=== PATIENT | male | born 1970 | race Caucasian/White ===

== ENCOUNTER 2017-03-17 09:54 | Day surgery (SDC) | payer OTHER ==
[2017-03-13 11:12] VITALS: BMI 33.5
[~2017-03-17 09:54] MED LIST: LACTATED RINGERS 1,000 ML IV SCH; SODIUM CHLORIDE 0.9% 1,000 ML IV SCH
[2017-03-17] MEDS ORDERED: SODIUM CHLORIDE 0.9% 500 ML IV ONE ×2 (10:51)
[2017-03-17 10:59] LABS: Anion Gap 12 mmol/L; Blood Urea Nitrogen 14 mg/dL (9-20); Calcium 9.8 mg/dL (8.4-10.2); Carbon Dioxide 30 mmol/L (22-30); Chloride 102 mmol/L (98-107); Glucose 117 mg/dL (74-99); Non-African American GFR(MDRD) >60 (>60 ml/min/1.73 sqM); Potassium 4.8 mmol/L (3.5-5.1); Sodium 144 mmol/L (137-145)
[2017-03-17 11:01] VITALS: RESP 18
[2017-03-17] MEDS ORDERED: fentaNYL (PF) 50 MCG/ML 2 ML AMP ONE (11:05)
[2017-03-17] MEDS ORDERED: PROPOFOL 10 MG/ML 20 ML VIAL IV ONE (11:05)
[2017-03-17] MEDS ORDERED: LIDOCAINE 1% INJ 10MG/ML (20 ML MDV) ONE (11:05)
[2017-03-17] MEDS ORDERED: SODIUM CHLORIDE 0.9% 1,000 ML IV SCH (11:15)
[2017-03-17 11:30] VITALS: TEMP 98.5
[2017-03-17 14:13] VITALS: PULSE 70
[2017-03-17 16:04] VITALS: BP 132/70
--- NOTE | 2017-03-17 22:40 | PCN ---
DATE OF PROCEDURE: 03/17/2017 PROCEDURE: Electrical cardioversion. INDICATION: Persistent atrial fibrillation. PERFORMED BY: Dr. Bean Zepead. CLINICAL INFORMATION: Mr. Brad Onofre is a 46-year-old gentleman with a history of smoking and alcoholism who developed atrial fibrillation about a year ago, underwent cardioversion, and was remaining in sinus rhythm, but atrial fibrillation has recurred. With this he developed some shortness of breath; usually has had LV dysfunction when he goes into atrial fibrillation, but this time he seemed to be tolerating it better, but over the last few weeks he became more short of breath and he remained in atrial fibrillation in spite of amiodarone. He was brought in for electrical cardioversion after adequate anticoagulation with Savaysa 60 mg daily and rate control with beta merced. PROCEDURE: Under the influence of an ultra short-acting intravenous anesthetic agent with the attendance of the anesthesiologist, a single synchronized 200-joule shock was delivered with anterior and posterior patches. Patient converted to sinus rhythm and remained hemodynamically stable and neurologically intact. The results were discussed with the patient and his friend Elvis who brought the patient in. Patient remains hemodynamically stable. He will be discharged on the same medications in the next 3 to 4 hours after he is fully awake, has had a meal and ambulated. I will see him in the office on Thursday, March 23, at 8 a.m.
--- NOTE | 2017-03-17 22:42 | LTR ---
March 17, 2017 RE: Jemima Brad Patrice Dear Dr. Anguiano, Thank you for the opportunity to participate in the care of Mr. Onofre. I performed a cardioversion on this gentleman for persistent atrial fibrillation. He converted to sinus rhythm, remains in sinus rhythm, hemodynamically stable and neurologically intact. He will be discharged later on today, and I will see him in the office in 5 to 6 days. Thank you for your referral. Please call with questions. Sincerely, MIRACLE HAGER MD
== END 2017-03-17 16:04 | disposition home or self-care (01) ==
LOC: CATHCVL 09:54
PROVIDERS: ATTEND Internal Medicine Interventional Cardiology
DX: I48.1 Persistent atrial fibrillation (principal); I11.0 Hypertensive heart disease with heart failure; I50.23 Acute on chronic systolic (congestive) heart failure; F17.210 Nicotine dependence, cigarettes, uncomplicated; E66.9 Obesity, unspecified; Z68.30 Body mass index [BMI] 30.0-30.9, adult; I42.8 Other cardiomyopathies; Z79.02 Long term (current) use of antithrombotics/antiplatelets; Z79.899 Other long term (current) drug therapy; Z88.0 Allergy status to penicillin
CPT/HCPCS: 93005; 92960; 80048; J2001; J3010; J2704